=== PATIENT | female | born 1995 | race Caucasian/White ===

== ENCOUNTER 2017-07-25 19:49 | Inpatient (IN) | payer OTHER ==
[~2017-07-25] VITALS: Ht 160 cm; Wt 89.0 kg
[2017-07-25 20:42] VITALS: BP 129/76; PULSE 75; RESP 18; Ht 160 cm; Wt 89.0 kg
[2017-07-25] MEDS ORDERED: PREN1TAB79 PO (20:58)
[2017-07-25] MEDS ORDERED: CALC600T5 PO (20:58)
[2017-07-25] MEDS ORDERED: FOLI0.8C PO (20:58)
[2017-07-25] MEDS ORDERED: FERR325T5 PO (20:58)
--- NOTE | 2017-07-25 20:59 | RADRPT ---
PROCEDURE: US biophysical profile. CLINICAL INDICATION: Contractions at 37 weeks gestational age. TECHNIQUE: Multiple sonographic images of the uterus were obtained. The images were revi ewed on a PACS workstation. COMPARISON: No prior studies are available for comparison. FINDINGS: There is a single live intrauterine gestation. heart rate is 143 beats per minute. The position is cephalic. The placenta is fundal left grade II with no abruption or previa. The MISAEL is 26.8 cm. (Normal = 5-20 cm.) Breathing Movement: 2 Gross Body Movement: 2 Tone: 2 Qualitative Amniotic Fluid Volume: 2 TOTAL: 8 IMPRESSION: 1. The biophysical score is 8/8. RPTAT: QQ .Iron Recinos MD, Date Time Electronically viewed and signed by .Iron Recinos MD, on 07/25/2017 20:59 .R/
--- NOTE | 2017-07-25 23:29 | HP ---
Date/Time of Note Date/Time of Note DATE: 07/25/17 TIME: 23:26 OB - History Hx of Present Free Text/Dictation 07/25/2017 Chief Complaint: Abdominal pain and contractions : 2 Para: 1 Therapeutic : 0 Care: Good Care Abnormal Ultrasound Findings: 22-year-old with IUP at 37 weeks with history of supraumbilical hernia, presents with a complaint of abdominal pain around the hernia area as well as uterine contractions. She denies any leaking of fluid, vaginal bleeding or decreased movement. Patient noted to have cervical change while she had been observed in triage. Initial exam progress to Reports history of precipitous delivery and prior and for that reason patient was admitted to labor and delivery for possible early labor Other Concerns: 22 years old with IUP at 37 weeks with care with Dr. Bell presented to the hospital with complaint of contractions and mid abdominal pain arround her umbilicus at the area or prior Umbilical Hernia, She Denied any LOF , vaginal bleeding or decreased movement. Denies any nausea or vomiting. Noted to have contractions on the monitor as well as cervical change and for that reason admitted to L&D records unavailable. Reports history of Past Family/Social History * Past Medical, Surgical, Family and Obstetric Histories reviewed from chart. OB Admission Exam Vital Signs Vital Signs Vital Signs Date Time Temp Pulse Resp B/P Pulse Ox O2 Delivery O2 Flow Rate FiO2 07/25/17 20:42 98.4 75 18 129/76 Room Air Physical Exam HEENT: WNL Lungs: Clear Extremities: Normal Cervical Dilatation: 4cm Effacement: 50% Membranes: Intact Heart Rate: 130's Accelerations: Accelerations Present Decelerations: No Decelerations Varibility: Moderate Contractions on Admission: >10 Minutes Apart Intensity: Moderate OB Assessment/Plan Other Assessment: IUP at 37 weeks Early labor Patient will be admitted to labor and delivery We will continue to observe If more cervical change cervical change consider labor management Obtain records in a.m. from the office Plan: Expectant Management Other plan: if no Further cervical change may consider discharge home History of precipitous labor Supraumbilical hernia. No evidence of strangulation or incarceration. KIERRA HU MD Jul 25, 2017 23:29
[2017-07-25] MEDS ORDERED: LIDOCAINE 1% (MPF) 30 ML INJ INJ PRN (23:30)
[2017-07-25] MEDS ORDERED: METHYLERGONOVINE 0.2 MG INJ IM PRN (23:30)
[2017-07-25] MEDS ORDERED: BUTORPHANOL 2 MG INJ IV PRN (23:30)
[2017-07-25] MEDS ORDERED: IBUPROFEN 600 MG TAB PO PRN (23:30)
[2017-07-25] MEDS ORDERED: OXYTOCIN 30 UNITS/LR 500 ML IV SCH ×2 (23:30)
[2017-07-25] MEDS ORDERED: AMPICILLIN 2 GM/NS (PMX) 100 ML IV ONE (23:30)
[2017-07-25] MEDS ORDERED: LACTATED RINGER'S 1,000 ML IV PRN (23:30)
[2017-07-25] MEDS ORDERED: OXYTOCIN 30 UNITS/LR 500 ML IV PRN (23:30)
[2017-07-25] MEDS ORDERED: CARBOPROST 250 MCG INJ IM PRN (23:30)
[2017-07-25] MEDS ORDERED: MISOPROSTOL 200 MCG TAB PR PRN (23:30)
[2017-07-26] MEDS: LACTATED RINGER'S 1,000 ML IV SCH ×2 (01:38→06:12)
[2017-07-26] MEDS ORDERED: AMPICILLIN 1 GM/NS (PMX) 50 ML IV SCH (03:30)
--- NOTE | 2017-07-26 04:00 | TRIAGE ---
OB Triage Datetime Report Generated by CPN: 07/26/2017 04:00 Datetime: 07/26/2017 03:30 Labor Evaluation Frequency: 2-7 Monitor Mode: External Duration (sec)2399: 60-180 Quality: Moderate Pattern: Normal: <= 5 Contractions in 10 Minutes Resting Tone [place]: Relaxed Heart Rate FHR Baseline Rate: 135 Monitor Mode: External US FHR Baseline Changes: No Baseline Change Variability: Moderate 6-25 bpm Accelerations: 15X15 Decelerations: None Category: Category I Datetime: 07/26/2017 01:25 Labor Evaluation Frequency: 2-6 Monitor Mode: External Duration (sec)2399: 50-160 Quality: Mild Pattern: Normal: <= 5 Contractions in 10 Minutes Resting Tone [place]: Relaxed Heart Rate FHR Baseline Rate: 140 Monitor Mode: External US FHR Baseline Changes: No Baseline Change Variability: Moderate 6-25 bpm Accelerations: 15X15 Decelerations: None Category: Category I Pain Assessment Pain Scale: 2 Pain Presence: Intermittent Pain Type: Contraction Pain Location: Abdomen Pain Relief Measures: Comfort Measures Datetime: 07/26/2017 01:00 Labor Evaluation Frequency: 3-7 Monitor Mode: External Duration (sec)2399: 50-100 Quality: Mild Pattern: Normal: <= 5 Contractions in 10 Minutes Resting Tone [place]: Relaxed Heart Rate FHR Baseline Rate: 135 Monitor Mode: External US FHR Baseline Changes: No Baseline Change Variability: Moderate 6-25 bpm Accelerations: 15X15 Decelerations: None Category: Category I Datetime: 07/26/2017 00:30 Labor Evaluation Frequency: 2-3 Monitor Mode: External Duration (sec)2399: 60-100 Quality: Mild Pattern: Normal: <= 5 Contractions in 10 Minutes Resting Tone [place]: Relaxed Heart Rate FHR Baseline Rate: 145 Monitor Mode: External US FHR Baseline Changes: No Baseline Change Variability: Moderate 6-25 bpm Accelerations: 15X15 Decelerations: None Category: Category I Datetime: 07/26/2017 00:05 Assessment Type: Admission Assessment Vaginal Bleeding: None Maternal Assessment Level of Consciousness: Fully Conscious DTR's/Clonus: DTRs 2+; No Clonus Headache: Denies Blurred Vision: No Respiratory Effort: Unlabored; Regular Rhythm; Equal Expansion Breath Sounds, Left: Clear and Equal Breath Sounds, Right: Clear and Equal Nausea/Vomiting: Denies RUQ Epigastric Pain: Denies Facial Edema: None Fall Risk Assessment History of Falling: (0) No Secondary Diagnosis: (0) No Ambulatory Aid: (0) Bedrest/Nurse Assist Gait: (0) Normal/Bedrest/Immobile Mental Status: (0) Oriented to Own Ability Pain Assessment Pain Scale: 0 Datetime: 07/26/2017 00:04 Time of Arrival: 07/26/2017 00:00 EGA: 37.0 Arrived By: Ambulatory Arrived From: Home Datetime: 07/26/2017 00:03 Labor Evaluation Frequency: 3-5 Monitor Mode: External Duration (sec)2399: 50-100 Quality: Mild Pattern: Normal: <= 5 Contractions in 10 Minutes Resting Tone [place]: Relaxed Heart Rate FHR Baseline Rate: 135 Monitor Mode: External US FHR Baseline Changes: No Baseline Change Variability: Moderate 6-25 bpm Accelerations: 15X15 Decelerations: None Category: Category I Datetime: 07/26/2017 00:02 Stage of : Labor Temperature Route: Oral Datetime: 07/25/2017 23:59 Membrane Status: Intact Datetime: 07/25/2017 23:00 Labor Evaluation Frequency: 2-9 Monitor Mode: External Duration (sec)2399: 40-140 Quality: Mild Pattern: Normal: <= 5 Contractions in 10 Minutes Resting Tone [place]: Relaxed Heart Rate FHR Baseline Rate: 135 Monitor Mode: External US FHR Baseline Changes: No Baseline Change Variability: Moderate 6-25 bpm Accelerations: 15X15 Decelerations: Variable Category: Category II Datetime: 07/25/2017 22:52 Stage of : OB Triage Vaginal Exam Dilatation (cms): 3.5 Effacement (%): 50 Station: -3 Exam By: PAULINE Jose Vaginal Bleeding: None Cervix, Consistency: Soft Cervix, Position: Posterior Presentation 'A': Cephalic Datetime: 07/25/2017 22:00 Stage of : OB Triage Labor Evaluation Frequency: 1.5-6 Monitor Mode: External Duration (sec)2399: 40-120 Quality: Mild Pattern: Normal: <= 5 Contractions in 10 Minutes Resting Tone [place]: Relaxed Heart Rate FHR Baseline Rate: 135 Monitor Mode: External US Variability: Moderate 6-25 bpm Accelerations: 15X15 Decelerations: None Category: Category I Datetime: 07/25/2017 21:00 Stage of : OB Triage Labor Evaluation Frequency: 1-3 Monitor Mode: External Duration (sec)2399: 40-110 Quality: Mild Pattern: Normal: <= 5 Contractions in 10 Minutes Resting Tone [place]: Relaxed Heart Rate FHR Baseline Rate: 140 Monitor Mode: External US Variability: Moderate 6-25 bpm Accelerations: 15X15 Decelerations: None Category: Category I Datetime: 07/25/2017 20:35 Stage of : OB Triage Datetime: 07/25/2017 20:14 Vaginal Exam Dilatation (cms): 2.0 Effacement (%): 40 Station: -3 Exam By: PAULINE Jose Vaginal Bleeding: None Cervix, Consistency: Moderate Cervix, Position: Posterior Presentation 'A': Cephalic Datetime: 07/25/2017 20:08 Stage of : OB Triage Assessment Type: Triage Maternal Assessment Level of Consciousness: Fully Conscious DTR's/Clonus: DTRs 2+; No Clonus Headache: Denies Blurred Vision: No Respiratory Effort: Unlabored; Regular Rhythm; Equal Expansion Breath Sounds, Left: Clear and Equal Breath Sounds, Right: Clear and Equal Nausea/Vomiting: Denies RUQ Epigastric Pain: Denies Lower Extremities Edema: Bilateral Lower Extremities (Annotations: Feet only) Degree: 1+ Upper Extremities Edema: None Degree: None Facial Edema: None Temperature Route: Oral Fall Risk Assessment History of Falling: (0) No Secondary Diagnosis: (0) No Ambulatory Aid: (0) Bedrest/Nurse Assist IV Therapy: (0) No Gait: (0) Normal/Bedrest/Immobile Mental Status: (0) Oriented to Own Ability Fall Score: 0 Fall Risk Score Definition: No Risk: No action required Pain Assessment Pain Scale: 7 Pain Presence: Constant Pain Type: Sharp; Stabbing Pain Location: Abdomen Pain Relief Measures: Comfort Measures Pain Assessment Comments: Umbilical hernia pain worse when ambulating Datetime: 07/25/2017 20:05 EGA: 37.0 Datetime: 07/25/2017 20:03 Time of Arrival: 07/25/2017 19:43 Arrived By: Ambulatory Arrived From: Home Chief Complaint: Abdominal pain at site of umbilical hernia Movement: Present Contractions: Denies/Absent Rupture of Membranes: Denies Vaginal Bleeding: None Vaginal Discharge: Denies Recent Sexual Intercouse: Denies Abdominal Trauma: Not Applicable Patient Complaints: Other Time Provider Notified: 07/25/2017 20:35 Provider Notified: Initial Plan: EFM x2, VE Datetime: 07/25/2017 20:01 Monitor Mode: External Contraction Comments: [place] applied Heart Rate FHR Baseline Rate: 150 Monitor Mode: External US Comments: MIN applied
--- NOTE | 2017-07-26 13:55 | DS ---
Date/Time of Note Date/Time of Note DATE: 07/26/17 TIME: 13:46 Discharge Summary Admission/Discharge Info Admit Date/Time Jul 25, 2017 at 23:00 Discharge Date/Time July 27 at 1347 Discharge Diagnosis 37 weeks and 1 day EDC August 15, 2070 admitted to the hospital to rule out labor cervical dilatation on admission cervix 2 cm dilated 70-80% effaced vertex at -2 station pelvic examination at 9:00 AM July 27 cervix is still 2 cm 80% vertex -2 station ,final examination today at 1340 no cervical changes patient discharged home with the labor instruction she has appointment on July 28 to be seen at the clinic Patient Condition: Good Procedures Observation to rule out labor Hx of Present Illness 37 weeks 2 day Hospital Course Patient had minimal contraction no cervical change category 1 heart rate discharged home with follow-up instruction to be seen at the office, she has appointment for July 28, 2017 Home Meds Reported Medications Calcium Carbonate (CALCIUM) 600 Mg Tablet, 600 MG PO DAILY, TAB 07/25/17 Folic Acid (Folic Acid) 0.8 Mg Capsule, 0.8 MG PO DAILY, CAP 07/25/17 Ferrous Sulfate (Ferrous Sulfate) 325 Mg Tablet.dr, 325 MG PO DAILY 07/25/17 Vit W-Ca,Fe,FA(<1 mg) ( Vitamins) 1 Each Tablet, 1 EACH PO DAILY, TAB 07/25/17 Follow-up Plan Patient has appointment with the clinic July 28, 2017 Primary Care Provider Care Physician No Primary Time spent on discharge: < 30 minutes Pending Labs Laboratory Tests Test 07/26/17 00:31 07/26/17 00:32 White Blood Count 14.610^3/ul (4.8-10.8) Red Blood Count 4.1010^6/ul (4.20-5.40) Hemoglobin 12.8g/dl (12.0-16.0) Hematocrit 37.8% (37.0-47.0) Mean Corpuscular Volume 92.2fl (82.0-101.0) Mean Corpuscular Hemoglobin 31.2pg (29.0-33.0) Mean Corpuscular Hemoglobin Concent 33.9g/dl (32.0-37.0) Red Cell Distribution Width 12.7% (11.5-14.5) Platelet Count 96920^3/UL (140-415) Mean Platelet Volume 11.3fl (7.4-10.4) Neutrophils % 72.9% (39.0-77.0) Lymphocytes % 18.7% (15.0-51.0) Monocytes % 5.7% (0.0-11.0) Eosinophils % 1.2% (0.0-7.0) Basophils % 0.3% (0.0-2.0) Nucleated Red Blood Cells % 0.0/100WBC (0.0-0.0) Neutrophils # 10.710^3/ul (1.6-7.5) Lymphocytes # 2.710^3/ul (0.8-2.9) Monocytes # 0.810^3/ul (0.3-0.9) Eosinophils # 0.210^3/ul (0.0-0.5) Basophils # 0.110^3/ul (0.0-0.1) Nucleated Red Blood Cells # 0.010^3/ul (0.0-0.0) Prothrombin Time 13.4Sec (12.2-14.2) Prothrombin Time Ratio 1.0 INR International Normalized Ratio 1.02 Activated Partial Thromboplast Time 29.3Sec (25.0-35.0) Hepatitis B Surface Antigen NEGATIVE (NEGATIVE) RICK CASANOVA MD Jul 26, 2017 13:55
== END 2017-07-26 14:40 | disposition home or self-care (01) | DRG 778 ==
LOC: OBT 19:49 → L-D 19:51 → OBT 23:00
PROVIDERS: ADMIT Obstetrics & Gynecology; ATTEND Obstetrics & Gynecology
DX: O60.03 Preterm labor without delivery, third trimester (principal); Z3A.37 37 weeks gestation of pregnancy
CPT/HCPCS: 76818; 85025; 85610; 85730; 86592; 86900; 86901; 87340; G0463; J0290; J7120

== ENCOUNTER 2017-08-02 05:18 | Inpatient (IN) | payer OTHER ==
[~2017-08-02] VITALS: Ht 160 cm; Wt 89.0 kg
[~2017-08-02 05:18] MED LIST: CALC600T5 PO; FERR325T5 PO; FOLI0.8C PO; PREN1TAB79 PO
[2017-08-02] MEDS ORDERED: LACTATED RINGER'S 1,000 ML IV SCH (05:58)
[2017-08-02] MEDS ORDERED: MISOPROSTOL 200 MCG TAB PR PRN (06:00)
[2017-08-02] MEDS ORDERED: METHYLERGONOVINE 0.2 MG INJ IM PRN (06:00)
[2017-08-02] MEDS ORDERED: LIDOCAINE 1% (MPF) 30 ML INJ INJ PRN (06:00)
[2017-08-02] MEDS ORDERED: CARBOPROST 250 MCG INJ IM PRN (06:00)
[2017-08-02] MEDS ORDERED: OXYTOCIN 30 UNITS/LR 500 ML IV SCH (06:00)
[2017-08-02] MEDS ORDERED: OXYTOCIN 30 UNITS/LR 500 ML IV PRN (06:00)
[2017-08-02] MEDS ORDERED: IBUPROFEN 600 MG TAB PO PRN (06:00)
[2017-08-02] MEDS ORDERED: MINERAL OIL LIGHT 10 ML VIAL TOP PRN (06:00)
[2017-08-02] MEDS ORDERED: OXYCODONE/ASPIRIN (4.88/325) TAB PO PRN ×3 (06:00→11:30)
[2017-08-02] MEDS ORDERED: BUTORPHANOL 2 MG INJ IV PRN (06:00)
[2017-08-02] MEDS ORDERED: LACTATED RINGER'S 1,000 ML IV PRN (06:05)
--- NOTE | 2017-08-02 06:37 | TRIAGE ---
OB Triage Datetime Report Generated by CPN: 08/02/2017 06:36 Datetime: 08/02/2017 06:27 Time of Arrival: 08/02/2017 06:10 EGA: 38.1 Arrived By: Stretcher Arrived From: TRIAGE- OB Datetime: 08/02/2017 05:50 Vaginal Exam Dilatation (cms): 4.0 Effacement (%): 90 Station: -2 Exam By: Lorena BRUNNER Membrane Status: Ruptured Amniotic Fluid Color: Clear Amniotic Fluid Amount: Moderate Cervix, Consistency: Soft Presentation 'A': Cephalic Datetime: 08/02/2017 05:30 Stage of : OB Triage Maternal Assessment Level of Consciousness: Fully Conscious DTR's/Clonus: DTRs 2+; No Clonus Headache: Denies Blurred Vision: No Respiratory Effort: Unlabored; Regular Rhythm; Equal Expansion Breath Sounds, Left: Clear and Equal Breath Sounds, Right: Clear and Equal Nausea/Vomiting: Denies RUQ Epigastric Pain: Denies Lower Extremities Edema: None Degree: None Upper Extremities Edema: None Degree: None Facial Edema: None Fall Risk Assessment History of Falling: (0) No Secondary Diagnosis: (0) No Ambulatory Aid: (0) Bedrest/Nurse Assist IV Therapy: (0) No Gait: (0) Normal/Bedrest/Immobile Mental Status: (0) Oriented to Own Ability Fall Score: 0 Fall Risk Score Definition: No Risk: No action required Datetime: 08/02/2017 05:23 Time of Arrival: 08/02/2017 05:18 EGA: 38.1 Arrived By: Wheelchair Arrived From: Home Chief Complaint: SROM @3AM CONTRACTIONS Movement: Present Contractions: Regular Time Contractions Began: 08/02/2017 03:00 Rupture of Membranes: Ruptured Vaginal Discharge: Present Recent Sexual Intercouse: Denies Abdominal Trauma: Not Applicable Patient Complaints: Contractions; Other Time Provider Notified: 08/02/2017 06:00 Provider Notified: DR. HU Initial Plan: EFM, SVE, NITRAZINE CALL OB Datetime: 07/26/2017 13:42 Labor Evaluation Frequency: OCCASIONAL Monitor Mode: External Duration (sec)2399: 50-90 Pattern: Normal: <= 5 Contractions in 10 Minutes Resting Tone [place]: Relaxed Contraction Comments: DENIES FEELING ANY UC'S Heart Rate FHR Baseline Rate: 130 Monitor Mode: External US FHR Baseline Changes: No Baseline Change Variability: Moderate 6-25 bpm Accelerations: 15X15 Decelerations: None Category: Category I Datetime: 07/26/2017 13:41 Vaginal Exam Dilatation (cms): 2.0 Exam By: DR. JOCELYNE Datetime: 07/26/2017 13:00 Labor Evaluation Frequency: IRREGULAR Monitor Mode: External Duration (sec)2399: 80-120 Pattern: Normal: <= 5 Contractions in 10 Minutes Resting Tone [place]: Relaxed Heart Rate FHR Baseline Rate: 140 Monitor Mode: External US FHR Baseline Changes: No Baseline Change Variability: Moderate 6-25 bpm Accelerations: 15X15 Decelerations: None Category: Category I Datetime: 07/26/2017 12:26 Comments: PT SITTING UP EATING LUNCH Datetime: 07/26/2017 11:49 Labor Evaluation Frequency: IRREGULAR Monitor Mode: External Duration (sec)2399: 60-100 Pattern: Normal: <= 5 Contractions in 10 Minutes Resting Tone [place]: Relaxed Heart Rate FHR Baseline Rate: 135 Monitor Mode: External US FHR Baseline Changes: No Baseline Change Variability: Moderate 6-25 bpm Accelerations: 15X15 Decelerations: None Category: Category I Datetime: 07/26/2017 11:01 Comments: PT STILL SITTING UP EATING A LATE BREAKFAST Datetime: 07/26/2017 10:47 Labor Evaluation Frequency: IRREGULAR Monitor Mode: External Duration (sec)2399: 40-80 Pattern: Normal: <= 5 Contractions in 10 Minutes Resting Tone [place]: Relaxed Heart Rate FHR Baseline Rate: 135 Monitor Mode: External US FHR Baseline Changes: No Baseline Change Variability: Moderate 6-25 bpm Accelerations: 15X15 Decelerations: None Datetime: 07/26/2017 10:00 Labor Evaluation Frequency: IRREGULAR Monitor Mode: External Duration (sec)2399: 70-120 Pattern: Normal: <= 5 Contractions in 10 Minutes Resting Tone [place]: Relaxed Contraction Comments: DENIES FEELING ANY UC'S Heart Rate FHR Baseline Rate: 135 Monitor Mode: External US FHR Baseline Changes: No Baseline Change Variability: Moderate 6-25 bpm Accelerations: 15X15 Decelerations: None Category: Category I Datetime: 07/26/2017 09:40 Vaginal Exam Dilatation (cms): 2.0 Effacement (%): 80 Datetime: 07/26/2017 08:56 Labor Evaluation Frequency: 2-4 Monitor Mode: External Duration (sec)2399: 60-80 Pattern: Normal: <= 5 Contractions in 10 Minutes Resting Tone [place]: Relaxed Contraction Comments: PT DENIES FEELING ANY UC'S Heart Rate FHR Baseline Rate: 140 Monitor Mode: External US FHR Baseline Changes: No Baseline Change Variability: Moderate 6-25 bpm Accelerations: 15X15 Decelerations: None Category: Category I Datetime: 07/26/2017 08:00 Labor Evaluation Frequency: 2-6 Monitor Mode: External Duration (sec)2399: 50-90 Pattern: Normal: <= 5 Contractions in 10 Minutes Resting Tone [place]: Relaxed Contraction Comments: DENIES FEELING ANY UC'S Heart Rate FHR Baseline Rate: 135 Monitor Mode: External US FHR Baseline Changes: No Baseline Change Variability: Moderate 6-25 bpm Accelerations: 15X15 Decelerations: None Category: Category I Datetime: 07/26/2017 07:20 Pain Assessment Pain Scale: 0 Pain Presence: None/Denies Pain Type: N/A Pain Goal: 0 Datetime: 07/26/2017 07:19 Assessment Type: Ongoing Assessment Maternal Assessment Level of Consciousness: Fully Conscious DTR's/Clonus: DTRs 2+; No Clonus Headache: Denies Blurred Vision: No Respiratory Effort: Unlabored; Regular Rhythm; Equal Expansion Breath Sounds, Left: Clear and Equal Breath Sounds, Right: Clear and Equal Nausea/Vomiting: Denies RUQ Epigastric Pain: Denies Lower Extremities Edema: None Degree: None Upper Extremities Edema: None Degree: None Facial Edema: None Fall Risk Assessment History of Falling: (0) No Secondary Diagnosis: (0) No Ambulatory Aid: (0) Bedrest/Nurse Assist IV Therapy: (20) Yes Gait: (0) Normal/Bedrest/Immobile Mental Status: (0) Oriented to Own Ability Fall Score: 20 Fall Risk Score Definition: No Risk: No action required Datetime: 07/26/2017 06:30 Labor Evaluation Frequency: 2-7 Monitor Mode: External Duration (sec)2399: 60-150 Quality: Mild Pattern: Normal: <= 5 Contractions in 10 Minutes Resting Tone [place]: Relaxed Heart Rate FHR Baseline Rate: 135 Monitor Mode: External US FHR Baseline Changes: No Baseline Change Variability: Moderate 6-25 bpm Accelerations: 15X15 Decelerations: None Category: Category I Pain Assessment Pain Scale: 3 Pain Presence: Intermittent Pain Type: Contraction Pain Location: Abdomen Pain Relief Measures: Comfort Measures Datetime: 07/26/2017 05:36 Vaginal Exam Dilatation (cms): 3.5 Effacement (%): 50 Station: -3 Exam By: LAYLA Datetime: 07/26/2017 05:30 Labor Evaluation Frequency: 1-7 Monitor Mode: External Duration (sec)2399: 60-110 Quality: Mild Pattern: Normal: <= 5 Contractions in 10 Minutes Resting Tone [place]: Relaxed Heart Rate FHR Baseline Rate: 135 Monitor Mode: External US FHR Baseline Changes: No Baseline Change Variability: Moderate 6-25 bpm Accelerations: 15X15 Decelerations: None Category: Category I Datetime: 07/26/2017 04:30 Labor Evaluation Frequency: 1.5-8 Monitor Mode: External Duration (sec)2399: 60-130 Quality: Mild Pattern: Normal: <= 5 Contractions in 10 Minutes Resting Tone [place]: Relaxed Heart Rate FHR Baseline Rate: 135 Monitor Mode: External US FHR Baseline Changes: No Baseline Change Variability: Moderate 6-25 bpm Accelerations: 15X15 Decelerations: None Category: Category I Datetime: 07/26/2017 00:04 EGA: 37.0 Datetime: 07/25/2017 20:08 Fall Score: 0 Fall Risk Score Definition: No Risk: No action required Datetime: 07/25/2017 20:05 EGA: 37.0
[2017-08-02 06:51] LABS: BASOPHILS % 0.2 % (0.0-2.0); EOSINOPHILS # 0.1 10^3/ul (0.0-0.5); EOSINOPHILS % 0.5 % (0.0-7.0); HEMOGLOBIN 12.8 g/dl (12.0-16.0); LYMPHOCYTES % 11.9 % (15.0-51.0); MEAN CORPUSCULAR HEMOGLOBIN 30.5 pg (29.0-33.0); MEAN CORPUSCULAR HGB CONC 33.7 g/dl (32.0-37.0); MEAN CORPUSCULAR VOLUME 90.5 fl (82.0-101.0); MEAN PLATELET VOLUME 10.8 fl (7.4-10.4); MONOCYTE # 0.8 10^3/ul (0.3-0.9); MONOCYTES % 4.6 % (0.0-11.0); NEUTROPHIL # 13.9 10^3/ul (1.6-7.5); PLATELET COUNT 237 10^3/UL (140-415); RED CELL DISTRIBUTION WIDTH 12.7 % (11.5-14.5); WHITE BLOOD COUNT 16.9 10^3/ul (4.8-10.8)
[2017-08-02 07:01] LABS: INR 0.98
[2017-08-02 07:02] LABS: PARTIAL THROMBOPLASTIN TIME 27.9 Sec (25.0-35.0)
[2017-08-02 07:15] VITALS: BP 115/65; PULSE 90; RESP 18
[2017-08-02] MEDS ORDERED: FENTAnyl 2MCG/ML-ROPIV 0.2% 100 ML ONE (07:29)
[2017-08-02] MEDS ORDERED: ONDANSETRON 4 MG INJ IV PRN ×2 (08:00→11:30)
[2017-08-02] MEDS ORDERED: FENTAnyl 2MCG/ML-ROPIV 0.2% 100 ML BAG EPI SCH (08:00)
[2017-08-02] MEDS ORDERED: KETOROLAC 30 MG INJ IV PRN (08:00)
[2017-08-02] MEDS ORDERED: DIPHENHYDRAMINE 50 MG INJ IV PRN (08:00)
[2017-08-02] MEDS ORDERED: NALOXONE (0.4 MG/ML) INJ IV PRN (08:00)
[2017-08-02] MEDS ORDERED: HYDROmorphONE 0.5 MG/0.5 ML SYG IV PRN ×2 (08:00)
[2017-08-02] MEDS: OXYTOCIN 30 UNITS/LR 500 ML IV SCH ×4 (09:01→15:30)
--- NOTE | 2017-08-02 09:41 | HP ---
Date/Time of Note Date/Time of Note DATE: 08/02/17 TIME: 09:32 OB - History Hx of Present Free Text/Dictation 22 years old female EDC August 15, 2017 admitted to [facility] at 38 weeks and 1 day due to premature rupture of membrane in labor pelvic examination on admission cervix 5 cm dilated 100% effaced, vertex at -1-0 station, heart rate category 1 Chief Complaint: Premature rupture of membrane at 3:30 AM, in labor Estimated Due Date: Aug 15, 2017 : 2 Para: 1 Care: Good Care Ultrasounds: Normal mid trimester US Obstetrical Complications: None Medical Complications: None Past Family/Social History * Past Medical, Surgical, Family and Obstetric Histories reviewed from chart. Rubella: immune RPR/VDRL: Negative GBS Status: Negative HBsAG: Negative OB Admission Exam Vital Signs Vital Signs Vital Signs Date Time Temp Pulse Resp B/P Pulse Ox O2 Delivery O2 Flow Rate FiO2 08/02/17 07:15 98.8 90 18 115/65 Room Air Physical Exam HEENT: WNL Heart: Rhythm Normal Lungs: Clear, Equal Abdomen: WNL Extremities: Normal Reflexes: Normal Cervical Dilatation: 5cm Effacement: 100% Station: -1 Membranes: Ruptured Amniotic Fluid: Clear Heart Rate: 130's Accelerations: Accelerations Present Decelerations: No Decelerations Varibility: Moderate Contractions on Admission: < 5 Minutes Apart Intensity: Moderate Last 72 hours Lab Results CBC & BMP 08/02/17 06:34 RICK CASANOVA MD Aug 02, 2017 09:41
--- NOTE | 2017-08-02 09:45 | LDN ---
Date/Time of Note Date/Time of Note DATE: 08/02/17 TIME: 09:41 Delivery Summary Normal spontaneous vaginal delivery of a baby girl from OA position shoulders delivered without difficulty rest of the baby's body followed cord clamped after stopped pulsation placenta spontaneous expulsion inspected complete, patient sustained 1 cm right paraurethral laceration repaired with 4-0 chromic catgut, perineal vaginal exam negative for any laceration estimated blood loss 250 cc Weeks of Gestation 38 weeks and 1 Placenta Delivered: Spontaneously Meconium: none Episiotomy: No Laceration repair: 1 cm right paraurethral laceration repaired with 4-0 chromic catgut Anesthesia type: Epidural Sponge & Needle done & correct: Yes All needle counts correct: Yes Any foreign bodies felt in the: No Problems: Infant Delivery Information Sex Infant Sex: female Apgars 1 Minute: 9 5 Minute: 9 Suctioning Nose & mouth suctioned at conrado: Yes Delee suction performed: No Umbilical Cord Umbilical cord with: 3 Vessels Cord presentations: no nuchal cord Cord Blood was obtained: Yes RICK CASANOVA MD Aug 02, 2017 09:45
[2017-08-02 11:20] VITALS: BP 105/55; PULSE 89; RESP 18
[2017-08-02] MEDS ORDERED: ACETAMINOPHEN 325 MG TAB PO PRN (11:30)
[2017-08-02] MEDS ORDERED: BENZOCAINE 20% 56 ML SPRAY TOP PRN (11:30)
[2017-08-02] MEDS ORDERED: LANOLIN 7 GM TUBE TOP PRN (11:30)
[2017-08-02] MEDS ORDERED: DIBUCAINE 1% 30 GM OINT PR PRN (11:30)
[2017-08-02] MEDS ORDERED: WITCH HAZEL/GLYCERIN PAD PR PRN (11:30)
[2017-08-02] MEDS ORDERED: HYDROCODONE/APAP (5/325) TAB PO PRN ×2 (11:30)
[2017-08-02] MEDS: IBUPROFEN 600 MG TAB PO SCH ×2 (12:34→18:13)
[2017-08-02 16:00] VITALS: BP 106/52; PULSE 78; RESP 18
[2017-08-02 19:55] VITALS: BP 118/64; RESP 18
[2017-08-02] MEDS: SENNA/DOCUSATE NA (8.6MG/50MG) TAB PO SCH (21:13)
[2017-08-03] VITALS: BP 109/59; PULSE 70; RESP 18
[2017-08-03] MEDS: IBUPROFEN 600 MG TAB PO SCH ×4 (00:12→17:37)
[2017-08-03 04:40] VITALS: BP 99/54; PULSE 67; RESP 18
[2017-08-03 08:15] VITALS: BP 114/70; PULSE 84; RESP 20
[2017-08-03 08:50] LABS: BASOPHILS % 0.2 % (0.0-2.0); EOSINOPHILS # 0.1 10^3/ul (0.0-0.5); EOSINOPHILS % 1.1 % (0.0-7.0); HEMATOCRIT 35.6 % (37.0-47.0); LYMPHOCYTES # 1.8 10^3/ul (0.8-2.9); LYMPHOCYTES % 15.4 % (15.0-51.0); MEAN CORPUSCULAR HEMOGLOBIN 31.5 pg (29.0-33.0); MEAN CORPUSCULAR HGB CONC 33.7 g/dl (32.0-37.0); MEAN CORPUSCULAR VOLUME 93.4 fl (82.0-101.0); MEAN PLATELET VOLUME 10.5 fl (7.4-10.4); MONOCYTE # 0.5 10^3/ul (0.3-0.9); MONOCYTES % 4.4 % (0.0-11.0); NEUTROPHIL # 9.2 10^3/ul (1.6-7.5); PLATELET COUNT 218 10^3/UL (140-415); RED BLOOD COUNT 3.81 10^6/ul (4.20-5.40); RED CELL DISTRIBUTION WIDTH 12.7 % (11.5-14.5); WHITE BLOOD COUNT 11.8 10^3/ul (4.8-10.8)
--- NOTE | 2017-08-03 09:13 | QN ---
Documentation Comment Post normal vaginal delivery day 1 Afebrile vital signs are stable Abdomen soft, uterus firm, lochia normal, extremity normal Ambulation encouraged plan of a.m. discharge discussed with the patient RICK CASANOVA MD Aug 03, 2017 09:13
[2017-08-03] MEDS: SENNA/DOCUSATE NA (8.6MG/50MG) TAB PO SCH ×2 (09:46→21:01)
[2017-08-03 16:00] VITALS: BP 115/61; PULSE 72; RESP 18
[2017-08-03 19:45] VITALS: BP 113/67; PULSE 67; RESP 18
[2017-08-03] MEDS ORDERED: INFLUENZA VIRUS VACCINE 0.5 ML SYG IM* ONE (21:00)
[2017-08-04] MEDS: IBUPROFEN 600 MG TAB PO SCH ×3 (00:15→11:21)
[2017-08-04 04:13] VITALS: BP 106/59
[2017-08-04 07:30] VITALS: BP 112/56; PULSE 68; RESP 16
[2017-08-04] MEDS: SENNA/DOCUSATE NA (8.6MG/50MG) TAB PO SCH (08:57)
[2017-08-04] MEDS ORDERED: MEASLES,MUMPS,RUBELLA VACCINE INJ SC* ONE (09:00)
--- NOTE | 2017-08-04 12:51 | DS ---
Date/Time of Note Date/Time of Note DATE: 08/04/17 TIME: 12:50 Obstetrical Discharge Record Final Diagnosis Final Diagnosis: Term delivered Vaginal Delivery Obstetrical Delivery: Spontaneous Condition on Discharge Physical Assessment Voiding: Yes Bowel Movement: Yes Breast: Soft, non-tender Fundus: Firm Calf Tenderness: No Patient Condition: Stable DUARTE FAUSTIN MD Aug 04, 2017 12:50
== END 2017-08-04 13:55 | disposition home or self-care (01) | DRG 775 ==
LOC: OBT 05:18 → L-D 05:23 → OBT 06:00 → PP1 11:45
PROVIDERS: ADMIT Obstetrics & Gynecology; ATTEND Obstetrics & Gynecology
PROC: 10E0XZZ Delivery of Products of Conception, External Approach (ICD-10-PCS; principal; 2017-08-02)
PROC: 0HQ9XZZ Repair Perineum Skin, External Approach (ICD-10-PCS; 2017-08-02)
PROC: 3E0P3VZ Introduction of Hormone into Female Reproductive, Percutaneous Approach (ICD-10-PCS; 2017-08-02)
DX: O71.82 Other specified trauma to perineum and vulva (principal); E66.01 Morbid (severe) obesity due to excess calories; O99.214 Obesity complicating childbirth; Z68.34 Body mass index [BMI] 34.0-34.9, adult; Z3A.38 38 weeks gestation of pregnancy; Z37.0 Single live birth
CPT/HCPCS: 62319; 85025; 85610; 85730; 86592; 86900; 86901; 87340; 90686; G0463; J2590; J3010; J7120

== ENCOUNTER 2018-02-25 07:19 | Day surgery (SDC) | END 2018-02-25 12:10 | disposition home or self-care (01) ==

== ENCOUNTER 2018-03-05 10:41 | Emergency (ER) | END 2018-03-05 10:51 | disposition home or self-care (01) ==